=== PATIENT | female | born 1985 | race Caucasian/White ===

== ENCOUNTER → 2023-06-07 09:46 | Outpatient (REF) | payer OTHER, SELFPAY | LOC: WDC 09:46 | PROVIDERS: ATTENDING PHYSICIAN Family Medicine | DX: N63.21 Unspecified lump in the left breast, upper outer quadrant (principal) | CPT/HCPCS: 76642; 77062; 77066 ==

== ENCOUNTER 2023-12-26 22:09 | Emergency (ER) | payer OTHER, SELFPAY ==
[2023-12-26 22:10] VITALS: BP 121/81
--- NOTE | 2023-12-26 22:38 | ED.GENMED ---
History of Present Illness
General
Chief Complaint: Problems
Source: patient
Exam Limitations: none
Time Seen by Provider: 12/26/23 22:17
History of Present Illness
History of Present Illness:
This is a 38 year old female that comes in with c/o vaginal bleeding. States that she just found out 1.5 weeks ago that she is . Her last Menstrual cycle was 11/16/2023. State that she saw her OB early and she was told that spotting was ok
but if she started to bleed she needed to come to the ER. States that she was spotting the past few days and now she started with bright red bleeding today. States that she has some pelvic discomfort and was nauseated. Denies any fever, chills,
chest pain, SOB, vomiting, diarrhea, headache, dizziness, urinary burning.
Past History
Past History
ED Past Medical History: Cancer (thyroid cancer (surgery04/2021)), Hypothyroidism and Other (Kidney infection, Post depression, Mastitis, May-Thurner syndrome)
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
Social History
Tobacco: Non-smoker
Alcohol: None
Drug: None
Personal:
Living: with family
Employment: Employed
Family History
Family History: Other
Review of Systems
Review of Systems
All Other Systems: ROS reviewed and negative except as documented in HPI and ROS
Constitutional: Reports no symptoms; Denies fever or chills
EENT: Reports no symptoms
Respiratory: Reports no symptoms; Denies cough or trouble breathing
Cardiac: Reports no symptoms; Denies chest pain
ABD/GI: Reports abdominal pain (Pelvic discomfort) and nausea; Denies vomiting or diarrhea
: Reports bleeding (vaginal bleeding); Denies dysuria, frequency or urgency
Musculoskeletal: Reports no symptoms
Skin: Reports no symptoms
Neurological: Reports no symptoms; Denies dizzy or headache
Psychiatric: Reports no symptoms
Phy Exam
General Physical Exam
General Presentation: well appearing and no apparent distress
General age: appears stated age
General Skin: warm and dry
General Habitus: normal
General Mental: alert
General Hydration: appears well hydrated
ENT Exam
ENT Exam: TM's normal, pharynx normal and neck supple
Eye Exam
Eye Exam: EOMI
Cardiovascular Exam
Cardiovascular Exam: regular rate/rhythm, no edema, no murmur and normal peripheral pulses
Pulmonary Exam
Pulmonary Exam: lungs clear, no respiratory distress, no rales, chest non tender, no crackles, no rhonchi, no wheezing and no cough
Gastrointestinal Exam
Gastrointestinal Exam: normal bowel sounds, non tender, soft, no organomegaly, no pulsatile mass and non distended
Genitourinary Exam Female
Vaginal Exam: blood
Vaginal Bleeding: minimal
Musculoskeletal Exam
Musculoskeletal Exam: full ROM and no edema
Skin Exam
Skin Exam: normal color, warm/dry, no rash and no petechia
Psychiatric Exam
Psychiatric Exam: normal mood/affect
Course
Orders/Labs/Results
Orders:
Orders
12/26/23 22:31
0.9% Sodium Chloride 1000 ml [Nss] 1,000 ml IV BOLUS
US W Transvaginal Urgent
Comment: last Menstraul cycle 11/06/2023
Reason For Exam: Bright red vaginal bleeding
12/26/23 22:41
Urinalysis Reflex To Culture Urgent
Date Specimen was Collected: 12/27/23
Time Specimen was Collected: 00:02
12/26/23 23:03
Type+Screen Urgent
BBK Wristband Number:
Beta HCG Quantitative Urgent
Is this a screen?: No
Complete Blood Count/With Diff Urgent
Comprehensive Metabolic Panel Urgent
12/27/23 00:03
Urine Microscopic Reflex Cult Urgent
Abnormal Lab Results
12/26/23 12/27/23
23:03 00:03
RBC 3.64 L 10^6/uL
(4.20-5.40)
Hgb 11.7 L g/dL
(12.0-16.0)
Hct 33.1 L %
(37.0-47.0)
MCH 32.1 H pg
(27.0-31.0)
Glucose 105 H mg/dl
(70-99)
Ur Occult Blood Reflex 2+ A
(Negative)
12/26/23 23:03
12/26/23 23:03
H/H slightly low. Glucose nonfasting. HCG 17.46, Urine negative for infection.
Vital Signs
Initial and Last Documented VS:
Initial Vital Signs
Temp Pulse Resp BP Pulse Ox
98.6 F 83 18 121/81 99
12/26/23 22:10 12/26/23 22:10 12/26/23 22:10 12/26/23 22:10 12/26/23 22:10
Last Documented Vital Signs
Temp Pulse Resp BP Pulse Ox
98.6 F 76 16 111/68 99
12/26/23 22:10 12/27/23 00:00 12/27/23 00:00 12/27/23 00:00 12/27/23 00:00
Information
Weeks gestation: N/A
Location: N/A
MDM/Problems Addressed
Differential Diagnosis Includes:
Bleeding in , Miscarriage.
MDM/Problems Addressed:
This is a 38 year old female that comes in with c/o bright red vaginal bleeding. States that she was spotting for the past few days and then today she started with bright red bleeding. States that she has some lower abd discomfort.
will check labs and get US.
Back into see patient.Patient was confirmed by her [employer] TECHNICIAN by urine dip. Explained to patient that her HCG is very low and that there is no Intrauterine seen. Patient will need repeat HCG and an Ultrasound in 7-10 days. Patient
to return with increased pain or any other concerns.
Chronic conditions affecting care:
NA
Acute Exacerbation and/or Progression of Chronic Illness:
NA
*Radiology
Radiology exam reviewed: radiology read reviewed (US-No intrauterine visualized. This may represent an early intrauterine , non-visulized ectopic , or spontaneous . recommend follow-up with serial beta HCG and
ultrasound in 7-10 days. Free fluid is present. No adnexal masses. Normal ovaries with no torsion. )
*Pulse Oximetry
Patient hypoxic: no
*EKG
Interpreted by ED Provider?: NA
Rate: EKG- N/A
*Digital Marketing Coordinator Interpretation
Rate: Digital Marketing Coordinator- N/A
*Critical Care Note
Total Time (30-74mins, 75-104mins- exclusive of procedures): Not Applicable
ED Attending Note
-
Portions of this chart may have been created with voice recognition software.� Occasional wrong word or��sound alike� substitutions may have occurred due to the inherent limitations of voice recognition software.
Discharge Plan
Departure
Patient Disposition: Home (Routine Discharge)
Date of Disposition: 12/27/23
Time of Disposition: 00:46
Patient with high blood pressure during this ER visit?: No
Condition: Good
Covid-19: Not Applicable
Discharge Problem:
Miscarriage
Instructions: Miscarriage (DC)
Prescriptions:
No Action
lecithin 1,200 MG capsule
1,200 mg PO BID
norethindrone (contraceptive) [Ortho Micronor] 0.35 MG tablet
0.35 mg PO DAILY
bupropion HCl 300 MG tablet extended release 24 hr
150 mg PO DAILY
aspirin 325 MG tablet
325 mg PO DAILY
tramadol 50 MG tablet
50 mg PO Q6HPRN PRN (Reason: pain)
acetaminophen 500 MG tablet
1,000 mg PO
cefadroxil 500 MG capsule
500 mg PO BID
docusate sodium 100 MG capsule
100 mg PO BID
ondansetron 4 MG tablet,disintegrating
4 mg PO TIDPRN PRN (Reason: nausea)
cefadroxil 500 MG capsule
500 mg PO BID Qty: 10 0RF
oxycodone 5 MG tablet
5 mg PO Q4HPRN PRN (Reason: severe pain) Qty: 20 0RF
Referrals:
Zahraa Mtz MD [Family Provider] - Call in 1-3 days for appt
Activity Restrictions/Additional Instructions:
As discussed, your Blood work shows that your HCG is very low. Your Ultrasound is negative for any intrauterine . There is no mass or obvious tubal swelling. Please follow up with your [employer] TECHNICIAN and they will need to repeat your HCG and have
an ultrasound in 7-10 days. IF YOU HAVE INCREASED ABDOMINAL PAIN, OR YOU HAVE ANY OTHER CONCERNS PLEASE RETURN TO THE EMERGENCY ROOM
Interventions
Interventions:
*General Assessment Last Done: 12/26/23 22:10
*Neglect/Abuse Screening Last Done: 12/26/23 22:10
ED- Fall Risk Assessment Last Done: 12/26/23 22:10
*ED COVID-19 Vaccine History Last Done: 12/26/23 22:10
ED-Female Genitourinary Assessment Last Done: 12/26/23 23:05
Discharge Date and Time
Print Language: BHUTANESE
[2023-12-26] MEDS: NSS 1000 IV (23:03)
[2023-12-26 23:05] VITALS: BMI 26.7
[2023-12-26 23:10] LABS: % Basophils 0.4 % (0-2); % Eosinophils 1.5 % (0-6); % Immature Granulocytes 0.2 % (0-0.5); % Lymphocytes 42.3 % (20.5-51.1); % Monocytes 8.6 % (1.7-9.3); Absolute Eosinophils 0.1 10^3/uL (0-0.7); Absolute Monocytes 0.4 10^3/uL (0.1-0.6); Absolute Neutrophils 2.2 10^3/uL (1.4-6.5); Hematocrit 33.1 % (37.0-47.0); Hemoglobin 11.7 g/dL (12.0-16.0); Mean Corp Hgb Conc. 35.3 g/dL (33.0-37.0); Mean Corpuscular Hgb 32.1 pg (27.0-31.0); Mean Corpuscular Volume 90.9 fL (81.0-99.0); Mean Platelet Volume 9.5 fL (7.4-10.4); Nucleated Red Blood Cells % 0 %; Platelet Count 181 10^3/uL (130-400); Red Blood Cell Count 3.64 10^6/uL (4.20-5.40); Red Cell Dist. Width 11.5 % (11.5-14.5); White Blood Cell Count 4.8 10^3/uL (4.8-10.8)
[2023-12-26 23:31] LABS: ALT (SGPT) 20 U/L (0-35); AST (SGOT) 24 U/L (14-36); Albumin 4.1 g/dl (3.5-5.0); Alkaline Phosphatase 44 U/L (38-126); Blood Urea Nitrogen 14 mg/dl (7-17); Calcium 9.4 mg/dl (8.4-10.2); Carbon Dioxide 30 mmol/L (22-30); Chloride 100 mmol/L (98-107); Estimated Creatinine Clearance 89 ml/min; Glucose 105 mg/dl (70-99); Potassium 4.1 mmol/L (3.5-5.1); Sodium 138 mmol/L (135-145); Total Bilirubin 0.3 mg/dl (0.2-1.3); Total Protein 6.4 g/dl (6.3-8.2); eGFR > 60.00
[2023-12-26 23:41] LABS: Beta HCG Quantitative 17.46 mIU/ml
[2023-12-27] VITALS: BP 111/68
[2023-12-27 00:22] LABS: Urine Albumin Negative (Neg - Trace); Urine Bilirubin Negative (Negative); Urine Character Clear (Clear); Urine Color Yellow; Urine Glucose Negative (Negative); Urine Ketone Negative (Negative); Urine Leukocyte Negative (Negative); Urine Nitrite Negative (Negative); Urine Occult Blood 2+ (Negative); Urine Specific Gravity 1.005 (<1.030); Urine Urobilinogen Negative (Neg - 1+)
[2023-12-27 01:31] LABS: Urine Amorphous Seen
[2023-12-27 01:32] LABS: Urine Bacteria Many (Negative)
[2023-12-27 01:33] LABS: Urine White Cell 0-2 /HPF (0-5)
== END 2023-12-27 01:04 | disposition home or self-care (01) ==
LOC: EMR 22:09
PROVIDERS: Clinical Nurse Specialist Family Health; EMERGENCY PHYSICIAN Student in an Organized Health Care Education/Training Program; FAMILY PHYSICIAN Family Medicine
DX: O03.9 Complete or unspecified spontaneous abortion without complication (principal)
CPT/HCPCS: 99284; 96360; 76801; 76817; 80053; 81003; 81015; 84702; 85025; 86850; 86900; 86901; 87086

== ENCOUNTER 2025-01-18 20:37 | Emergency (ER) | payer OTHER, SELFPAY ==
[2025-01-18 20:40] VITALS: BP 134/81
--- NOTE | 2025-01-19 00:09 | ED.GENMED ---
History of Present Illness
General
Chief Complaint: Swelling
Source: patient
Exam Limitations: none
Time Seen by Provider: 01/18/25 23:51
Nursing documentation reviewed up to this point in time: agreed with
History of Present Illness
History of Present Illness:
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 Of note, patient is
postop day 5 for . She states that she has been doing well and recovering well. She reports that she had a complicated by prematurity and a growth defect but reports that her and baby are doing well and the went well.
She follows with [facility]. The patient reports that since the operation, she has had swelling in both legs which is not unusual for her but she started to notice that the left side was worse than the right. She reports that
she has a history of venous insufficiency in the left leg due to Thurner syndrome as well as intermittent swelling as a result of lymph node dissection in that leg because she had sarcoma. She also has had nerves removed in that leg which impacts
her ability to feel pain however she does get intermittent neuropathic pain in that extremity. She denies any chest pain or shortness of breath. She reports that while she has been waiting in the ER, she feels like her symptoms have been
improving. She does wear compression stockings at baseline. Patient denies any trauma to the leg, any recent falls.
Past History
Past History
ED Past Medical History: Cancer (thyroid cancer (surgery04/2021)), Hypothyroidism and Other (Kidney infection, Post depression, Mastitis, May-Thurner syndrome)
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
Social History
Tobacco: Non-smoker
Alcohol: None
Drug: None
Personal:
Living: with family
Employment: Employed
Family History
Family History: Other
Review of Systems
Review of Systems
All Other Systems: ROS reviewed and negative except as documented in HPI and ROS
Phy Exam
Physical Exam
Physical Exam:
General: Patient is well appearing and in no acute distress; non-toxic
Skin: Warm and dry, no rashes or lesions. No rashes or lesions.
Head: Normocephalic, atraumatic
Eyes: Sclera non-icteric. EOMs intact.
Cardiac: Regular rate and rhythm, no murmurs
Peripheral Vascular: Mild left lower extremity edema noted, 2+ dorsalis pedis pulses and posterior tibial pulses bilaterally
Pulm: Normal respiratory effort, no wheezes, rales, or rhonchi
Neuro: CN II-XII intact, no focal neurologic deficits. Sensation intact to bilateral lower extremities.
Psychiatric: Appropriate mood and affect.
Course
Orders/Labs/Results
Orders:
Orders
01/18/25 20:45
Legs, left US [US Periph Venous LOWER Ext LT] Urgent
Comment: s/p
Reason For Exam: left leg swelling
Vital Signs
Initial and Last Documented VS:
Initial Vital Signs
Temp Pulse Resp BP Pulse Ox
98.1 F 85 18 134/81 99
01/18/25 20:40 01/18/25 20:40 01/18/25 20:40 01/18/25 20:40 01/18/25 20:40
Last Documented Vital Signs
Temp Pulse Resp BP Pulse Ox
98.1 F 67 18 118/72 98
01/18/25 20:40 01/19/25 00:26 01/19/25 00:26 01/19/25 00:26 01/19/25 00:26
MDM/Problems Addressed
Differential Diagnosis Includes:
Differentials include venous insufficiency, dependent edema, superficial phlebitis, DVT, Thurner syndrome exacerbation
MDM/Problems Addressed:
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 Of note, patient is
postop day 5 for . Her vital signs are stable. She is well-appearing in no acute distress. She has some mild left lower extremity edema noted however she is neurovascularly intact. No rashes or lesions. Suspect swelling related to
lymph node dissection versus underlying Thurner syndrome. Patient does have a stent in that same extremity. Patient will follow-up with her vascular doctor and primary care provider. Patient went for ultrasound which showed no evidence of DVT.
Patient stable for discharge. Patient takes a baby aspirin daily. Patient is not on any anticoagulant medication.
Chronic conditions affecting care:
Pelvic venous congestion, hypothyroidism, left lower extremity sarcoma, May-Thurner syndrome
*Pulse Oximetry
SaO2: 99
Oxygen Mode of Delivery: Room air
Patient hypoxic: no
*Critical Care Note
Total Time (30-74mins, 75-104mins- exclusive of procedures): Not Applicable
Data Reviewed
Review of Other/Old Records Reveals: Records (Reviewed ER/documentation from 12/26/2023 patient seen for miscarriage) and Discharge Summary (Reviewed operative report from 05/18/2019 patient seen for MIS , reviewed operative report from
12/15/2020 patient seen for excision of lower extremity mass)
Source: patient and records
ED Attending Note
-
Portions of this chart may have been created with voice recognition software.� Occasional wrong word or��sound alike� substitutions may have occurred due to the inherent limitations of voice recognition software.
Discharge Plan
Departure
Patient Disposition: Home (Routine Discharge)
Date of Disposition: 01/19/25
Time of Disposition: 00:09
Patient with high blood pressure during this ER visit?: Yes
Condition: Good
Discharge Problem:
Left leg swelling, May-Thurner syndrome
Instructions: Swelling, Lymphedema, BLOOD PRESSURE
Prescriptions:
No Action
lecithin 1,200 MG capsule
1,200 mg PO BID
norethindrone (contraceptive) [Ortho Micronor] 0.35 MG tablet
0.35 mg PO DAILY
bupropion HCl 300 MG tablet extended release 24 hr
150 mg PO DAILY
aspirin 325 MG tablet
325 mg PO DAILY
tramadol 50 MG tablet
50 mg PO Q6HPRN PRN (Reason: pain)
acetaminophen 500 MG tablet
1,000 mg PO
cefadroxil 500 MG capsule
500 mg PO BID
docusate sodium 100 MG capsule
100 mg PO BID
ondansetron 4 MG tablet,disintegrating
4 mg PO TIDPRN PRN (Reason: nausea)
cefadroxil 500 MG capsule
500 mg PO BID Qty: 10 0RF
oxycodone 5 MG tablet
5 mg PO Q4HPRN PRN (Reason: severe pain) Qty: 20 0RF
Referrals:
Zahraa Mtz MD [Family Provider, Family Practice]
Activity Restrictions/Additional Instructions:
Please follow up with your primary care physician and vascular doctor as needed. Please continue use of compression stockings.
PLEASE RETURN TO THE ER SHOULD YOU DEVELOP SHORTNESS OF BREATH, CHEST PAIN, INTRACTABLE NAUSEA OR VOMITING, LIGHTHEADEDNESS, DIZZINESS, OR ANY OTHER SIGNS OR SYMPTOMS WORRISOME TO YOU.
Interventions
Interventions:
*Risk Screen - Suicide Last Done: 01/18/25 23:31
*General Assessment Last Done: 01/18/25 23:31
*Neglect/Abuse Screening Last Done: 01/18/25 23:31
*ED- Fall Risk Assessment Last Done: 01/18/25 23:31
*ED COVID-19 Vaccine History Last Done: 01/18/25 23:31
*Nursing Disposition Last Done: 01/19/25 00:26
ED-Skin Assessment Last Done: 01/18/25 23:31
Discharge Date and Time
Discharge Date/Time: 01/19/25 00:26
Print Language: KOSOVAN
[2025-01-19 00:26] VITALS: BP 118/72
== END 2025-01-19 00:26 | disposition home or self-care (01) ==
LOC: EMR 20:37
PROVIDERS: EMERGENCY PHYSICIAN Emergency Medicine; FAMILY PHYSICIAN Family Medicine
DX: R22.42 Localized swelling, mass and lump, left lower limb (principal); I87.1 Compression of vein; E03.9 Hypothyroidism, unspecified; Z79.82 Long term (current) use of aspirin; Z85.850 Personal history of malignant neoplasm of thyroid
CPT/HCPCS: 99284; 93971

== ENCOUNTER 2025-01-20 17:43 | Emergency (ER) | payer OTHER, SELFPAY ==
[2025-01-20 18:08] VITALS: BP 116/86
[2025-01-20 18:33] LABS: Hematocrit 34.8 % (37.0-47.0); Hemoglobin 12.0 g/dL (12.0-16.0); Mean Corp Hgb Conc. 34.5 g/dL (33.0-37.0); Mean Corpuscular Volume 93.5 fL (81.0-99.0); Nucleated Red Blood Cells % 0 %; Platelet Count 231 10^3/uL (130-400); Red Cell Dist. Width 12.3 % (11.5-14.5)
[2025-01-20 18:47] LABS: ALT (SGPT) 81 U/L (0-35); AST (SGOT) 44 U/L (14-36); Albumin 4.0 g/dl (3.5-5.0); Alkaline Phosphatase 75 U/L (38-126); Blood Urea Nitrogen 15 mg/dl (7-17); Calcium 9.5 mg/dl (8.4-10.2); Carbon Dioxide 27 mmol/L (22-30); Chloride 104 mmol/L (98-107); Glucose 90 mg/dl (70-99); Potassium 4.7 mmol/L (3.5-5.1); Sodium 136 mmol/L (135-145); Total Protein 6.7 g/dl (6.3-8.2); eGFR > 60.00
[2025-01-20 20:00] VITALS: BP 125/78
[2025-01-20 20:02] VITALS: BP 125/78
--- NOTE | 2025-01-20 22:46 | ED.GENMED ---
History of Present Illness
General
Chief Complaint: Skin Problem
Source: patient
Exam Limitations: none
Time Seen by Provider: 01/20/25 21:33
Nursing documentation reviewed up to this point in time: agreed with
History of Present Illness
History of Present Illness:
Patient is a 39-year-old female who presents to the emergency department with concerns of area of redness of her left thigh. Patient states that she was in the shower earlier today when she noticed a small area of redness near her left knee. She
felt that there was a 'hard lump' under the area of redness. She has very little sensation in that part of her knee following a resection of a sarcoma if years ago.
Patient denies any fever, chills. No chest pain or shortness of breath.
Of note�patient is currently 6 days status post . She was seen in the ED yesterday concerns of atypical left lower extremity swelling and had negative ultrasound. She states swelling seems to have improved however she noticed new area of
redness today.
She does have a history of superficial thrombophlebitis during a prior . She currently takes a baby aspirin daily. She has a history of May-Thurner syndrome with a stent in her left lower extremity.
Past History
Past History
ED Past Medical History: Cancer (thyroid cancer (surgery04/2021)), Hypothyroidism and Other (Kidney infection, Post depression, Mastitis, May-Thurner syndrome)
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
Social History
Tobacco: Non-smoker
Alcohol: None
Drug: None
Personal:
Living: with family
Employment: Employed
Family History
Family History: Other
Review of Systems
Review of Systems
Allergies reviewed?: Yes
All Other Systems: ROS reviewed and negative except as documented in HPI and ROS
Phy Exam
Physical Exam
Physical Exam:
Vitals: Patient's vital signs are stable. Afebrile
General: Patient is well appearing, no acute distress. Nontoxic appearing
Skin: Warm and dry, no rashes or lesions
Head: Normocephalic, atraumatic
Eyes: Sclera nonicteric.
Throat: Protecting airway
Neck: Normal ROM, no cervical spine tenderness, no meningismus
Cardiac: Regular rate and rhythm, no murmurs.
Pulm: Normal respiratory effort, no wheezes, rales, rhonchi heard on exam
Extremities: Small area of erythema with palpable cord of left distal thigh at medial aspect. No obvious edema of bilateral lower extremities with 2+ DP and PT pulses bilaterally. No calf tenderness.
Neuro: AAOx3. Grossly intact.
Psychiatric: Normal affect.
Course
Orders/Labs/Results
Orders:
Orders
01/20/25 18:14
CMP [Comprehensive Metabolic Panel] Urgent
Complete Blood Count/With Diff Urgent
01/20/25 21:52
US Periph Venous LOWER Ext LT Urgent
Comment: 7 days s/p c section; hx superficial clots
Reason For Exam: Left medial thigh warmth, tenderness
Abnormal Lab Results
01/20/25
18:14
RBC 3.72 L 10^6/uL
(4.20-5.40)
Hct 34.8 L %
(37.0-47.0)
MCH 32.3 H pg
(27.0-31.0)
Lymphocytes % 20.2 L %
(20.5-51.1)
AST 44 H U/L
(14-36)
ALT 81 H U/L
(0-35)
01/20/25 18:14
01/20/25 18:14
Vital Signs
Initial and Last Documented VS:
Initial Vital Signs
Temp Pulse Resp BP Pulse Ox
98.9 F 91 18 116/86 99
01/20/25 18:08 01/20/25 18:08 01/20/25 18:08 01/20/25 18:08 01/20/25 18:08
Last Documented Vital Signs
Temp Pulse Resp BP Pulse Ox
98.9 F 72 18 130/74 100
01/20/25 18:08 01/20/25 20:02 01/20/25 20:02 01/20/25 23:15 01/20/25 22:46
MDM/Problems Addressed
Differential Diagnosis Includes:
Not limited to: Superficial thrombophlebitis, cellulitis, abscess, DVT, etc.
MDM/Problems Addressed:
39-year-old female with history as documented, recent six days ago presents with erythema of left distal medial thigh. She has poor sensation in that region following sarcoma resection and subsequent nerve injury a few years ago. No
obvious swelling, fever, or chills. She was in an ED two days ago for asymmetric left leg swelling with normal UA at that time, which has resolved.
Vitals and physical exam as above.
Patient very well appearing, in no distress. There is a small area on left distal medial thigh of erythema with palpable cord. No pitting edema, tenderness of lower extremity. LLE neurovascular intact.
Differential includes possible superficial thrombophlebitis or cellulitis. Less likely DVT.
Lab sent prior to my evaluation significant for very mild transaminitis. She is not hypertensive without concern for preeclampsia. Advised patient to have these repeated outpatient.
Will repeat ultrasound of LLE and reassess.
Update: ultrasound reveals superficial thrombophlebitis in area of concern. No evidence of DVT. Patient has had prior history of this during previous .She already takes baby aspirin.
Discussed with the attending physician. Will hold oral anticoagulation given and superficial nature of thrombosis. Advised to continue baby aspirin and apply warm compresses to affected area. Discussed importance of repeat ultrasound in
two weeks to ensure resolving.
Strict return precautions discussed. Patient stable for discharge.
Chronic conditions affecting care:
May Thurner syndrome,
Acute Exacerbation and/or Progression of Chronic Illness:
N/A
*Radiology
Radiology exam reviewed: radiology read reviewed
*Pulse Oximetry
SaO2: 100
Oxygen Mode of Delivery: Room air
Patient hypoxic: no
*EKG
Interpreted by ED Provider?: NA
*Websphere Administrator Interpretation
Rate: Websphere Administrator- N/A
*Critical Care Note
Total Time (30-74mins, 75-104mins- exclusive of procedures): Not Applicable
Data Reviewed
Review of Other/Old Records Reveals: Radiology Studies (Ultrasound of left lower extremity from 01/18/25 that shows no evidence of DVT)
ED Attending Note
-
Portions of this chart may have been created with voice recognition software.� Occasional wrong word or��sound alike� substitutions may have occurred due to the inherent limitations of voice recognition software.
Discharge Plan
Departure
Patient Disposition: Home (Routine Discharge)
Date of Disposition: 01/20/25
Time of Disposition: 23:06
Patient with high blood pressure during this ER visit?: No
Discharge Problem:
Superficial thrombophlebitis
Instructions: Superficial vein phlebitis and thrombosis
Prescriptions:
No Action
lecithin 1,200 MG capsule
1,200 mg PO BID
norethindrone (contraceptive) [Ortho Micronor] 0.35 MG tablet
0.35 mg PO DAILY
bupropion HCl 300 MG tablet extended release 24 hr
150 mg PO DAILY
aspirin 325 MG tablet
325 mg PO DAILY
tramadol 50 MG tablet
50 mg PO Q6HPRN PRN (Reason: pain)
acetaminophen 500 MG tablet
1,000 mg PO
cefadroxil 500 MG capsule
500 mg PO BID
docusate sodium 100 MG capsule
100 mg PO BID
ondansetron 4 MG tablet,disintegrating
4 mg PO TIDPRN PRN (Reason: nausea)
cefadroxil 500 MG capsule
500 mg PO BID Qty: 10 0RF
oxycodone 5 MG tablet
5 mg PO Q4HPRN PRN (Reason: severe pain) Qty: 20 0RF
Referrals:
Zahraa Mtz MD [Family Provider, [facility]] - Follow up in 1 week
Activity Restrictions/Additional Instructions:
RETURN TO THE EMERGENCY DEPARTMENT ANY WORSENING PAIN, REDNESS, OR SWELLING LEFT LOWER EXTREMITY, ANY FEVERS, CHILLS, CHEST PAIN OR SHORTNESS OF BREATH, WORSENING IN CURRENT SYMPTOMS, OR ANY OTHER CONCERNS
- As discussed�your ultrasound showed superficial thromboses in the area of your left distal thigh and medial knee. Please continue to take baby aspirin, Tylenol, and Motrin. Apply warm compresses affected area.
-It is very important you have a repeat ultrasound within 2 weeks to ensure clot burden has not increased shortness of breath.
- Your liver function tests were very mildly elevated today in the emergency department. Please ensure that these labs are rechecked within the next 1 to 2 weeks.
- Follow-up with PCP and MECHANISM ASSEMBLER for further evaluation/management as needed.
Monitor your symptoms closely and return to the emergency department with any acute worsening/new symptoms or any other concerns
Interventions
Interventions:
*Risk Screen - Suicide Last Done: 01/20/25 18:08
*General Assessment Last Done: 01/20/25 18:08
*Neglect/Abuse Screening Last Done: 01/20/25 18:08
*ED- Fall Risk Assessment Last Done: 01/20/25 18:08
*ED COVID-19 Vaccine History Last Done: 01/20/25 18:08
*Nursing Disposition Last Done: 01/20/25 23:15
ED-Skin Assessment Last Done: 01/20/25 20:05
Discharge Date and Time
Discharge Date/Time: 01/20/25 23:16
Print Language: CITIZEN OF [place]
[2025-01-20 23:15] VITALS: BP 130/74
== END 2025-01-20 23:16 | disposition home or self-care (01) ==
LOC: EMR 17:43
PROVIDERS: Student in an Organized Health Care Education/Training Program; EMERGENCY PHYSICIAN Emergency Medicine; FAMILY PHYSICIAN Family Medicine
DX: I80.02 Phlebitis and thrombophlebitis of superficial vessels of left lower extremity (principal); E03.9 Hypothyroidism, unspecified; Z85.850 Personal history of malignant neoplasm of thyroid; Z79.82 Long term (current) use of aspirin
CPT/HCPCS: 99284; 80053; 85025; 93971

== ENCOUNTER → 2025-01-29 14:53 | Outpatient (REF) | payer OTHER, SELFPAY | LOC: RAD 14:53 | PROVIDERS: ATTENDING PHYSICIAN Family Medicine | DX: O87.0 Superficial thrombophlebitis in the puerperium (principal); Z86.718 Personal history of other venous thrombosis and embolism; Z85.831 Personal history of malignant neoplasm of soft tissue | CPT/HCPCS: 93970 ==